=== PATIENT | female | born 1990 | race African-American/Black ===

== ENCOUNTER 2020-11-15 11:10 | Emergency (ER) | payer OTHER ==
[2020-11-15 11:17] VITALS: BP 109/74; PULSE 80; TEMP 97.9; BMI 38.7
[2020-11-15 12:59] LABS: BASO % 0.7 % (0-2.0); EOS % 0.7 % (0-4.5); HEMATOCRIT 34.3 % (32.4-45.2); HEMOGLOBIN 11.1 GM/dL (10.7-15.3); LYMPH % 26.9 % (8-40); MCHC 32.4 g/dl (32.0-36.0); MEAN CELL VOLUME 86.3 fl (80-96); MEAN PLT VOLUME 8.4 fl (7.5-11.1); MONO % 8.8 % (3.8-10.2); NEUT % 62.9 % (42.8-82.8); PLATELET COUNT 329 K/MM3 (134-434); RBC 3.98 M/mm3 (3.60-5.2); WHITE BLOOD COUNT 5.2 K/mm3 (4.0-10.0)
[2020-11-15 13:18] LABS: CHLORIDE 104 mmol/L (98-107); POTASSIUM 4.2 mmol/L (3.5-5.1); SODIUM 140 mmol/L (136-145)
[2020-11-15 13:20] LABS: ALBUMIN 3.8 g/dl (3.4-5.0); ANION GAP 7 MMOL/L (8-16); BLOOD UREA NITROGEN 7.4 mg/dL (7-18); CALCIUM 9.2 mg/dL (8.5-10.1); CO2 29 mmol/L (21-32); GLUCOSE,RANDOM 101 mg/dL (74-106)
[2020-11-15 13:23] LABS: CREATININE 0.9 mg/dL (0.55-1.3); SGOT/AST 13 U/L (15-37); SGPT/ALT 17 U/L (13-61)
[2020-11-15 13:25] LABS: BILIRUBIN,TOTAL 0.6 mg/dL (0.2-1); TOT PROT 7.6 g/dl (6.4-8.2)
[2020-11-15 13:26] LABS: ALK PHOS 87 U/L (45-117)
[2020-11-15 13:28] LABS: N-TERMINAL BNP 140.1 pg/ml (5-125)
== END 2020-11-15 14:26 | disposition home or self-care (01) ==
LOC: JER 11:10
DX: R19.7 Diarrhea, unspecified (principal)
CPT/HCPCS: 36415; 71046-TC-FY; 80053; 80178; 82550; 82553; 83880; 84443; 84484; 84702; 85025; 93005; 93010; 99285-25; C9803; U0003; U0005